=== PATIENT | female | born 1965 | race Caucasian/White ===

== ENCOUNTER 2017-07-22 10:40 | Emergency (ER) | payer BC ==
[2017-07-22 13:34] LABS: Urine Appearance Cloudy; Urine Blood Negative (Negative); Urine Color Yellow; Urine Ketones Negative (Negative); Urine Protein Negative (Negative); Urine Specific Gravity 1.014 (1.010-1.030); Urine Urobilinogen Negative (Negative)
[2017-07-22 14:15] VITALS: BP 135/83
--- NOTE | 2017-07-22 15:22 | ED ---
GI/ HPI - HPI Summary HPI Summary: Patient presents to the ED with urgency, frequency, burning upon urination. Dark colored, cloudy urine. Denies flank pain. Denies diaphoresis and chills. Denies known fever. Also notes to abnormal vaginal discharge with a fishy odor. Otherwise healthy. She states she has had these symptoms for 3-4 days and feels they have been worsening. She has been using baking soda without relief of smell. Hx of bacterial vaginosis treated with flagyl in the past. Hx of UTI and this feels the same. Denies sweats or chills. She denies any and all other symptoms. She has not tried any OTC medications and denies any white heavy discharge. Denies chance of or STD's. LMP 2 years ago. Slight leakage over the last week. Does see a OBGYN, but does not see a urologist. - History of Current Complaint Chief Complaint: EDUrogenitalProblems Time Seen by Provider: 07/22/17 12:16 Stated Complaint: BLADDER PAIN Hx Obtained From: Patient Onset/Duration: Started Days Ago Timing: Constant Severity: Moderate Current Severity: Severe Pain Intensity: 0 Location of Pain: Suprapubic Pain Characteristics: Cramping, Aching, Burning Associated Signs and Symptoms: Positive: Dysuria, UTI Symptoms. Negative: Nausea, Weight Loss, Constipation, Bright Red Blood w/Stool, Diaphoresis, Hematuria, Dyspureunia, Flank Pain, Chills, Abdominal Pain, New Sexual Partner Additional Signs & Symptoms: Positive: Vaginal Discharge - fishy odor and thin discharge without color. Negative: Vaginal Bleeding, Pelvic Infammatory Disease , STD Aggravating Factor(s): Voiding, Straining Alleviating Factor(s): Nothing PMH/Surg Hx/FS Hx/Imm Hx Previously Healthy: Yes - Immunization History Date of Influenza Vaccine: never Hx Pertussis Vaccination: No Immunizations Up to Date: Unable to Obtain/Confirm Infectious Disease History: No Infectious Disease History: Denies: Traveled Outside the [place] in Last 30 Days - Social History Occupation: Employed Full-time Lives: With Family Alcohol Use: None Hx Substance Use: No Substance Use Type: Reports: None Hx Tobacco Use: Yes Smoking Status (MU): Light Every Day Tobacco Smoker Review of Systems Constitutional: Negative Negative: Fever, Chills, Fatigue Eyes: Negative Cardiovascular: Negative Respiratory: Negative Negative: Abdominal Pain, Vomiting, Diarrhea, Nausea Positive: burning, dysuria, discharge, frequency, incontinence, pain, urgency. Negative: flank pain, hematuria Musculoskeletal: Negative Neurological: Negative All Other Systems Reviewed And Are Negative: Yes Physical Exam Triage Information Reviewed: Yes Vital Signs On Initial Exam: Initial Vitals Temp Pulse Resp BP Pulse Ox 99.6 F 70 16 118/78 97 07/22/17 10:50 07/22/17 10:50 07/22/17 10:50 07/22/17 10:50 07/22/17 10:50 Vital Signs Reviewed: Yes Appearance: Positive: Well-Appearing, Well-Nourished Skin: Positive: Warm, Skin Color Reflects Adequate Perfusion Head/Face: Positive: Normal Head/Face Inspection Eyes: Positive: EOMI, CHASE, Conjunctiva Clear Neck: Positive: Supple, Nontender, No Lymphadenopathy Respiratory/Lung Sounds: Positive: Clear to Auscultation, Breath Sounds Present Cardiovascular: Positive: RRR, Pulses are Symmetrical in both Upper and Lower Extremities Musculoskeletal: Positive: Strength/ROM Intact Neurological: Positive: Speech Normal Psychiatric: Positive: Normal, Affect/Mood Appropriate Diagnostics - Vital Signs Vital Signs Temp Pulse Resp BP Pulse Ox 07/22/17 14:09 99.3 F 71 16 135/83 100 07/22/17 10:50 99.6 F 70 16 118/78 97 - Laboratory Lab Results: Lab Results 07/22/17 Range/Units 13:00 Urine Color Yellow Urine Appearance Cloudy Urine pH 6.0 (5-9) Ur Specific Mellott 1.014 (1.010-1.030) Urine Protein Negative (Negative) Urine Ketones Negative (Negative) Urine Blood Negative (Negative) Urine Nitrate Positive H (Negative) Urine Bilirubin Negative (Negative) Urine Urobilinogen Negative (Negative) Ur Leukocyte Esterase 2+ H (Negative) Urine WBC (Auto) 3+(>20/hpf) H (Absent) Urine RBC (Auto) Absent (Absent) Ur Squamous Epith Cells Present H (Absent) Urine Bacteria Absent (Absent) Urine Glucose Negative (Negative) Lab Statement: Any lab studies that have been ordered have been reviewed, and results considered in the medical decision making process. GIGU Course/Dx - Course Course Of Treatment: UA performed. WBC and leuks seen. Labs WNL. Patient experiencing urgency, frequency and pain on urination. Dark urine noted. No abnormal vaginal discharge or bleeding. No CVA tenderness bilaterally. No previous UTI within last 6 months and no recent Augmentin use. Will treat for uncomplicated UTI and await sensitivities of urine culture. Will call if abx not sensitive to medication. Also experiencing vaginal discharge with a fishy odor. Hx of BV and states this feels similar. Denies chance of STD or . She is given flagyl per request and symptoms. She is given macorbid for UTI. Return precautions and follow up with PCP. - Diagnoses Differential Diagnoses - Female: Urinary Tract Infection Provider Diagnoses: UTI (urinary tract infection), Bacterial vaginosis Discharge - Discharge Plan Condition: Stable Disposition: HOME Prescriptions: Metronidazole [Flagyl 500 MG TAB] 500 mg PO BID #14 tab MDD 2 Nitrofurantoin Monohyd Macro [Macrobid] 100 mg PO BID #14 cap Patient Education Materials: Bacterial Vaginosis (ED), Urinary Tract Infection in Women (ED) Referrals: Non Staff,Doctor [Primary Care Provider] - Teofilo Cheung MD [Medical Doctor] - Additional Instructions: Dx. Urinary Tract Infection Drink plenty of fluids. Supplement with cranberry or wagoner juice. You may also take an over the counter cranberry supplement. If you have any questions about this, you may ask your pharmacist. If your symptoms have not improved in 1-2 days, if you develop fever, sweats or chills, please go to your emergency room, or call your PCP. Antibiotics were prescribed to you. Please take as directed. Supplement with over the counter probiotics on the opposite schedule of your antibiotic to prevent secondary infections. Do not take together as they may counteract each other. Flagyl - take 1 tab twice daily for 7 days I have give you a urologist referral for any worsening or changing symptoms
--- NOTE | 2017-07-24 12:48 | ED ---
Progress - Progress Note Progress Note: Pt's prelim urine cx reveals e. coli. Pt d/c'd w/ macrobid. No change at this time. Course/Dx - Course Course Of Treatment: UA performed. WBC and leuks seen. Labs WNL. Patient experiencing urgency, frequency and pain on urination. Dark urine noted. No abnormal vaginal discharge or bleeding. No CVA tenderness bilaterally. No previous UTI within last 6 months and no recent Augmentin use. Will treat for uncomplicated UTI and await sensitivities of urine culture. Will call if abx not sensitive to medication. Also experiencing vaginal discharge with a fishy odor. Hx of BV and states this feels similar. Denies chance of STD or . She is given flagyl per request and symptoms. She is given macorbid for UTI. Return precautions and follow up with PCP. - Diagnoses Provider Diagnoses: UTI (urinary tract infection), Bacterial vaginosis
--- NOTE | 2017-07-25 08:56 | PN ---
Progress Note - Progress Note Date of Service: 07/22/17 Note: macrobid is susceptible on final culture results.
== END 2017-07-22 14:09 | disposition home or self-care (01) ==
LOC: ED 10:40
DX: N39.0 Urinary tract infection, site not specified (principal); N76.0 Acute vaginitis; F17.210 Nicotine dependence, cigarettes, uncomplicated
CPT/HCPCS: 81003; 81015; 87077; 87086; 87186; 99282